=== PATIENT | male | born 1945 | race Hispanic/Latino ===

== ENCOUNTER 2018-12-16 19:24 | Emergency (ER) | payer MEDICARE ==
[2018-12-16] MEDS ORDERED: Adacel (T-DAP) 0.5 ML SYRINGE ONE (19:37)
--- NOTE | 2018-12-16 20:18 | CT ---
CT Brain WO Con: 12/16/2018 12:00 AM CLINICAL HISTORY: Trauma with head injury. IMAGING TECHNIQUE: Multiple CT images were obtained of the brain without IV contrast. COMPARISON: Prior CT the brain dated October 24, 2017. FINDINGS: Brain: No acute infarct or hemorrhage is evident. No midline shift. Ventricles: Normal. No hydrocephalus.. Skull: There are stable postsurgical change consistent with a left frontal temporal craniotomy.. Visualized Paranasal sinuses: Clear.. Mastoid air cells:Clear. Extracranial soft tissues:Normal. IMPRESSION: No acute intracranial abnormality.
--- NOTE | 2018-12-16 20:24 | CT ---
CT Cervical Spine WO Con Indication: Trauma with neck pain COMPARISON: None. FINDINGS: Fracture: None. Spinal alignment: There is slight anterior translation of C4 on C5 and C3 on C4 which is likely degen erative. Craniocervical junction: Within normal limits. Vertebral body heights: Maintained. Cervical spine degenerative change: There is suspicion for a broad-based bulge at C4-5 likely inducin g at least mild central canal narrowing. There is moderate to severe multilevel spondylosis of the cervical spine. Lung apices: There is a 6 mm pulmonary nodule within the right lung apex. There are scattered emphyse ma. IMPRESSION: 1. No acute fracture or subluxation. 2. Moderate to severe cervical spondylosis most pronounced at C4-5 as above. 3. Biapical emphysema with a 6 mm right lung apex pulmonary nodule. A nonemergent follow-up CT the th orax to evaluate for additional pulmonary nodularity is recommended.
[2018-12-16] MEDS ORDERED: Bacitracin 1 PK ONE (20:26)
== END 2018-12-16 20:50 | disposition home or self-care (01) ==
LOC: ERS 19:24
DX: S01.01XA Laceration without foreign body of scalp, initial encounter (principal); I10 Essential (primary) hypertension; Z23 Encounter for immunization; W01.198A Fall on same level from slipping, tripping and stumbling with subsequent striking against other object, initial encounter
CPT/HCPCS: 12002; 70450; 72125; 90471; 90715